=== PATIENT | female | born 1970 | race Caucasian/White ===

== ENCOUNTER 2016-09-18 20:23 | Inpatient (IN) | payer MEDICAID, OTHER ==
[~2016-09-18] VITALS: Ht 160 cm; Wt 77.1 kg
[2016-09-18 20:32] VITALS: BP 127/76
--- NOTE | 2016-09-18 20:33 | NUR ---
PT JORDYN BLS. TAKEN TO BED 7
--- NOTE | 2016-09-18 20:33 | NUR ---
46Y F BIBA FOR 5150 PLACED BY [facility]. PT STATES SHE TOOK 100TABS ASA BUT VOMIT IMMEDIATELY AFTER, STOMACH IS SOFT NON RIGID . [facility] STATES PT WAS FOUND AT [facility] IN THE BOX WHERE SHE CALLED EMS, STATING A GANG KNOWN BIG HAZARD IS OUT TO KILL HER STATING NAMES MANFRED OVIEDO AND ECTOR OVIEDO. ; SKIN IS PINK/WARM/DRY; AAOX4 WITH EVEN AND STEADY GAIT; LUNGS CLEAR BL; HR EVEN AND REGULAR; PT DENIES ANY FEVER, CP, SOB, OR COUGH AT THIS TIME; PATIENT STATES PAIN OF 0/10 AT THIS TIME; VSS; PATIENT POSITIONED FOR COMFORT; HOB ELEVATED; BEDRAILS UP X2; BED DOWN. ER MD MADE AWARE OF PT STATUS. THERE IS RIGHT MIDDLE FINGER RING STILL ON AND RIGHT NOSE PIERCING STILL IN PLACE, UNABLE TO PULL OUT AT THE MOMENT,
--- NOTE | 2016-09-18 20:50 | NUR ---
Dr. Elaine evaluating patient at bedside.
[2016-09-18] MEDS ORDERED: LORazepam 0.5 MG TAB PO ONE (21:00)
--- NOTE | 2016-09-18 21:03 | NUR ---
CALLED SPOKE TO KATYA AT POISON CONTROL, STATES WE SHOULD ADMINISTER 1G/1KG OF CHARCOAL; RUN CHEMISTRY, ASA, TYLENOL LAB AND RECHECK IN 2-3 HOURS WELL AT HYDRATE THE PT WELL; ER MD DR LYONS AWARE
[2016-09-18 21:19] LABS: BASOPHILS # (AUTO) 0.2 K/uL (0.00-0.22); BASOPHILS % (AUTO) 1.2 % (0.0-2.0); EOSINOPHILS # (AUTO) 0.3 K/uL (0-0.4); EOSINOPHILS % (AUTO) 2.5 % (0.0-4.0); HEMATOCRIT 36.9 % (36-48); HEMOGLOBIN 11.9 g/dL (12.0-16.0); LYMPHOCYTES # (AUTO) 4.1 K/uL (2.5-16.5); LYMPHOCYTES % (AUTO) 29.1 % (20.5-51.1); MEAN CORPUSCULAR HEMOGLOBIN 26 pg (27-31); MEAN CORPUSCULAR HGB CONC 32 g/dL (33-37); MEAN CORPUSCULAR VOLUME 80 fL (80-94); MONOCYTES # (AUTO) 0.8 K/uL (0.8-1.0); NEUTROPHILS # (AUTO) 8.5 K/uL (1.8-7.7); NEUTROPHILS % (AUTO) 61.2 % (42.2-75.2); PLATELET COUNT (AUTO) 337 K/uL (140-450); RED BLOOD CELL COUNT(AUTO) 4.62 MIL/uL (4.20-5.40); RED CELL DISTRIBUTION WIDTH 15.1 % (11.6-13.7)
[2016-09-18 21:29] LABS: APPEARANCE,URINE HAZY (CLEAR); BILIRUBIN,URINE NEGATIVE (NEGATIVE); BLOOD, URINE NEGATIVE (NEGATIVE); COLOR,URINE YELLOW (YELLOW); LEUKOCYTE ESTERASE ,URINE NEGATIVE (NEGATIVE); NITRITE, URINE NEGATIVE (NEGATIVE); PROTEIN,URINE NEGATIVE (NEGATIVE); UGLUCOSE TRACE (NEGATIVE); UROBILINOGEN,URINE 0.2 EU/dL (0.2 - 1)
[2016-09-18 21:32] LABS: RBC,URINE 0-3 /HPF (0-5); WBC,URINE 0-3 /HPF (0-5)
[2016-09-18 21:33] LABS: BACTERIA,URINE RARE /HPF (None Seen); CALCIUM OXALATE CRYSTALS,UR 30-50 /HPF (None Seen); MUCUS,URINE 2+ /LPF (None Seen)
[2016-09-18 21:33] LABS: ANION GAP 8.8 (8-16); CALCIUM 8.5 mg/dL (8.5-10.1); CARBON DIOXIDE 32.1 mmol/L (21-32); CHLORIDE 102 mmol/L (98-107); CREATININE 0.6 mg/dL (0.6-1.3); GFR ARICAN-AMERICAN 138 mL/min (>90); GFR NON ARICAN-AMERICAN 114 mL/min (>90); GLUCOSE 201 mg/dL (74-106); POTASSIUM 3.9 mmol/L (3.5-5.1); SODIUM SERUM 139 mmol/L (136-145); UREA NITROGEN, BLOOD 11 mg/dL (7-18)
[2016-09-18 21:34] LABS: PROTHROMBIN TIME 9.7 secs (10.8-13.4)
[2016-09-18 21:36] LABS: AMPHETAMINE, URINE POS. ng/ml (NEG <=1000); BARBITURATE, URINE NEG. ng/ml (NEG <=200); BENZODIAZEPINE, URINE NEG. ng/mL (NEG <=200); CANNABINOID, URINE NEG. ng/mL (NEG <=50); COCAINE, URINE NEG. ng/mL (NEG <=300); OPIATE, URINE NEG. ng/mL (NEG <=2000); PHENCYCLIDINE SCREEN,URINE NEG. ng/mL (NEG <=25)
[2016-09-18 21:40] LABS: ALANINE AMINOTRANSFERASE 22 U/L (12-78); ALBUMIN 2.8 g/dL (3.4-5.0); ALKALINE PHOSPHATASE 86 U/L (46-116); ASPARTATE AMINOTRANSFERASE 15 U/L (15-37); LIPASE 288 U/L (73-393); TOTAL BILIRUBIN 0.2 mg/dL (0.0-1.0); TOTAL PROTEIN, SERUM 7.2 g/dL (6.4-8.2)
[2016-09-18 21:44] LABS: ACETAMINOPHEN < 0.5 ug/ml (10-30); SALICYLATE < 2.8 mg/dL (2.8-20.0)
--- NOTE | 2016-09-18 21:51 | NUR ---
Patient appears to be resting comfortably in bed. Vital Signs within normal limits. Respirations even and unlabored, NO SIGNS OF DISTRESS AT THE MOMENT
[2016-09-18] MEDS ORDERED: ACTIVATED CHARCOAL 50 GM/240 ML TUBE PO ONE (22:00)
--- NOTE | 2016-09-18 22:00 | NUR ---
SPOKE TO ER MD DR ELOY MD STATES TO HOLD OFF ON CHARCOAL, UNTIL SAYS TO DO SO.
[2016-09-18] MEDS ORDERED: NACL 0.9% 1,000 ML IV SCH (22:14)
[2016-09-18] MEDS ORDERED: MORPHINE SULFATE 2 MG/ML SYR IVP PRN (22:15)
[2016-09-18] MEDS ORDERED: ONDANSETRON 4 MG/2 ML VIAL IVP PRN (22:15)
--- NOTE | 2016-09-18 22:16 | NUR ---
Patient will be admitted to care of DR. TIAN. Admited to MS . Will go to room ICU -5. Belongings list completed.
--- NOTE | 2016-09-18 22:29 | NUR ---
REPORT GIVEN TO MAXIM LONG.
--- NOTE | 2016-09-18 23:00 | NUR ---
ADMITTED FROM ER, AWAKE AND RESPONDING TO VERBAL FOLLOW COMMAND, PT TOLD SHE TOOK 100 TABS ASPIRIN, DENIES N/V,HAD SALINE LOCK LT ARM ANGIO CATH # 22, FLUSHING WELL, PT TOLD SHE VOIDED AT ER, DENIES PAIN, SKIN INTACT EXCEPT LOWER BOTH LEG HAD SOME SPOT REDNESS, DENIES ITCH, MONITOR ST HR 97
[2016-09-19 00:03] VITALS: BP 122/83
--- NOTE | 2016-09-19 00:26 | NUR ---
IV NS AT 100 ML/H WAS STARTED ORDER , POISON CONTROL CALLED UPDATED CONDITION , REPORT GIVEN TO [facility] POISON CONTROL SALICYLATES LEVEL < 2.8 RESULT SAME , CONDITION STABLE, NO DISTRESS
--- NOTE | 2016-09-19 02:00 | NUR ---
SLEPT AND QUIET, O2 SAT 98% RA, MONITOR SR HR 99
[2016-09-19 04:00] VITALS: BP 127/78
[2016-09-19 04:54] LABS: BASOPHILS # (AUTO) 0.2 K/uL (0.00-0.22); BASOPHILS % (AUTO) 1.4 % (0.0-2.0); EOSINOPHILS # (AUTO) 0.4 K/uL (0-0.4); EOSINOPHILS % (AUTO) 2.7 % (0.0-4.0); HEMATOCRIT 37.1 % (36-48); LYMPHOCYTES # (AUTO) 3.8 K/uL (2.5-16.5); LYMPHOCYTES % (AUTO) 27.4 % (20.5-51.1); MEAN CORPUSCULAR HEMOGLOBIN 26 pg (27-31); MEAN CORPUSCULAR HGB CONC 32 g/dL (33-37); MEAN CORPUSCULAR VOLUME 80 fL (80-94); MONOCYTES # (AUTO) 1.1 K/uL (0.8-1.0); MONOCYTES % (AUTO) 8.1 % (1.7-9.3); NEUTROPHILS # (AUTO) 8.4 K/uL (1.8-7.7); NEUTROPHILS % (AUTO) 60.4 % (42.2-75.2); PLATELET COUNT (AUTO) 328 K/uL (140-450); RED BLOOD CELL COUNT(AUTO) 4.63 MIL/uL (4.20-5.40); RED CELL DISTRIBUTION WIDTH 15.6 % (11.6-13.7); WHITE BLOOD COUNT (AUTO) 13.9 K/uL (4.8-10.8)
--- NOTE | 2016-09-19 06:10 | NUR ---
STILL SLEEPING,DO NOT WANT THIS TIME, DID NOT VOID SINCE ADMITTED, CONDITION STABLE
[2016-09-19 06:21] LABS: ALBUMIN 2.5 g/dL (3.4-5.0); ANION GAP 9.7 (8-16); CALCIUM 8.2 mg/dL (8.5-10.1); CARBON DIOXIDE 29.2 mmol/L (21-32); CREATININE 0.6 mg/dL (0.6-1.3); POTASSIUM 3.9 mmol/L (3.5-5.1); TOTAL BILIRUBIN 0.2 mg/dL (0.0-1.0); TOTAL PROTEIN, SERUM 6.7 g/dL (6.4-8.2)
--- NOTE | 2016-09-19 07:30 | NUR ---
RECEIVED FROM LANI LONG. PT SLEEPING AT THE TIME. AROUSE BY NAME CALLED. SKIN DRY WARM TO TOUCH, SHE IS ON ROOM AIR , IV FLUID ON LEFT ARM INFUSSING NS AT 100ML/HR.
--- NOTE | 2016-09-19 07:51 | NUR ---
PATIENT HAS BEEN SCREENED AND CATEGORIZED MODERATE NUTRITION RISK. PATIENT WILL BE SEEN WITHIN 3-5 DAYS OF ADMISSION. 09/21/16-09/23/[address]
[2016-09-19 08:00] VITALS: BP 127/88
--- NOTE | 2016-09-19 08:00 | NUR ---
AWAKE VOID 500ML.
[2016-09-19] MEDS ORDERED: ENOXAPARIN 40 MG/0.4 ML SYR SUBQ SCH (09:00)
--- NOTE | 2016-09-19 10:30 | NUR ---
SEEN BY DR. BARILLAS AT BEDSIDE, ORDER RECEIVED.
--- NOTE | 2016-09-19 11:14 | NUR ---
CM NOTE INITIAL REVIEW SENT TO [facility] FAX# [phone] PH# [phone] [phone]
[2016-09-19 12:00] VITALS: BP 125/82
--- NOTE | 2016-09-19 12:01 | NUR ---
SS NOTE: SENT PSYCH PLACEMENT INQUIRIES TO: [facility]
--- NOTE | 2016-09-19 12:30 | NUR ---
AWAKE LUNCH TAKEN ABU85% FROM THE BOBBY.
--- NOTE | 2016-09-19 13:15 | NUR ---
RONNA FROM [facility] IN [place] CALL THAT SHE MAY HAVE A BED FOR PT. WILL CALLED BACK.
--- NOTE | 2016-09-19 13:25 | NUR ---
CALL BACK FROM [facility] THAT DR NIXON WILL ACCEPT PT TO [facility] [address] RM 1114 B,TO DAY,
[2016-09-19] MEDS ORDERED: PROBIOTIC SCREEN 1 EA MISC MC PRN (14:00)
--- NOTE | 2016-09-19 15:30 | NUR ---
SHE TALK TO HER DAUGHTER PY PHONE.
--- NOTE | 2016-09-19 16:20 | NUR ---
OPEN HEARTH MELTER BY [facility] , PT IS AWAKE ALERT WELL ORIENTED AT THE TIME V/S WITH INNORMAL LIMIT.
== END 2016-09-19 16:20 | DRG 812 ==
LOC: MED 20:23 → MIC 22:17
PROVIDERS: ADMIT Hospitalist; ATTEND Hospitalist
DX: T39.012A Poisoning by aspirin, intentional self-harm, initial encounter (principal); G92 Toxic encephalopathy; F32.3 Major depressive disorder, single episode, severe with psychotic features; R45.851 Suicidal ideations; E11.9 Type 2 diabetes mellitus without complications; F15.10 Other stimulant abuse, uncomplicated; R41.0 Disorientation, unspecified; F41.9 Anxiety disorder, unspecified; F17.210 Nicotine dependence, cigarettes, uncomplicated; Z90.49 Acquired absence of other specified parts of digestive tract; Z88.6 Allergy status to analgesic agent; Z88.0 Allergy status to penicillin; Z59.0 Homelessness; Y92.89 Other specified places as the place of occurrence of the external cause
CPT/HCPCS: 36415; 80053; 80305; 81001; 81025; 82948; 83690; 85025; 85610; 87081; 93005; 99285; G0480; J7030